=== PATIENT | male | born 1965 | race Caucasian/White ===

== ENCOUNTER 2019-07-29 21:26 | Emergency (ER) | payer SELFPAY ==
[2019-07-29] MEDS ORDERED: IV RINGERS SOLUTION,LACTATED 1,000 ML IV SCH (21:35)
--- NOTE | 2019-07-29 21:35 | PHYS DOC ---
Past History Past Medical History: Bronchitis Adult General Chief Complaint Chief Complaint: ".. Everyone in the [facility] is sick.. cough, congestion, colds... now I ve got the same thing.. for last week.. I ve been down ten years.. but I can't wait to get out of the [facility].. .. 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 Patient has not smoke for over 7 years. Is exposed to multiple other prisoners at the [facility] that are sick. Patient did not get a flu vaccination this season. No recent travel. States he is normally healthy. Review of Systems Review of Systems Constitutional: Subjective history of fever or chills [] Eyes: Denies change in visual acuity, redness, or eye pain [] HENT: history of nasal congestion or sore throat [] Respiratory: History of cough and wheezing Cardiovascular: No additional information not addressed in HPI [] GI: Denies abdominal pain, nausea, vomiting, bloody stools or diarrhea [] : Denies dysuria or hematuria [] Musculoskeletal: Denies back pain or joint pain [] Integument: Denies rash or skin lesions [] Neurologic: Denies headache, focal weakness or sensory changes [] Endocrine: Denies polyuria or polydipsia [] All other systems were reviewed and found to be within normal limits, except as documented in this note. Family History Family History Noncontributory Current Medications Current Medications See nursing for home meds Allergies Allergies No known drug allergies Physical Exam Physical Exam Constitutional: moderate distress, non-toxic appearance. [] HENT: Normocephalic, atraumatic, bilateral external ears normal, oropharynx moist, injection of pharynx, no oral exudates, nose: Turbinates and rhinorrhea. Dental caries Eyes: PERRLA, EOMI, conjunctiva normal, no discharge. [] Neck: Normal range of motion, no tenderness, supple, no stridor. [] Cardiovascular:Heart rate regular rhythm, no murmur [.Pt. did have episodes of PVC and PAC with coughing episodes. ] Lungs & Thorax: Bilateral breath sounds equal at apexes few scattered wheezes auscultation [] Abdomen: Bowel sounds normal, soft, no tenderness, no masses, no pulsatile masses. [] Skin: Warm, dry, no erythema, no rash. [] Back: No tenderness, no CVA tenderness. [] Extremities: No tenderness, no cyanosis, no clubbing, ROM intact, no edema. [] Neurologic: Alert and oriented X 3, normal motor function, normal sensory function, no focal deficits noted. [] Psychologic: Affect, anxious ,judgement normal, mood normal. [] EKG EKG My interpretation EKG shows a sinus rhythm at 78 bpm. There is some nonspecific anterior lateral changes. But no findings acute STEMI with contralateral changes[] Radiology/Procedures Radiology/Procedures [][address] [address] IMAGING REPORT Signed PATIENT: DANYA CELIS ACCOUNT: [id number] : 1965 LOCATION: ER AGE: 53 SEX: M EXAM STATUS: REG ER ORD. PHYSICIAN: JOCELYN LEMUS MD REASON: Dyspnea, congestion PROCEDURE: CHEST PA & LATERAL PA and lateral chest. HISTORY: Dyspnea, congestion PA and lateral views were taken of the chest. Lungs are clear. Heart is normal in size without heart failure. There is no effusion. IMPRESSION: 1. No acute chest disease. Electronically signed by: Fermin Marcus MD (07/29/2019 10:11 PM) [facility] DICTATED AND SIGNED BY: FERMIN MARCUS MD DATE: 07/29/19 2211 CC: JOCELYN LEMUS MD; PCP,GIL ~ Course & Med Decision Making Course & Med Decision Making Pertinent Labs and Imaging studies reviewed. (See chart for details) Take Benadryl 25-50 mg 4 times a day. Use MDI 2 puffs 4 times a day. Take prednisone 50 mg a day. Follow-up primary care. Return if any concerns. Tylenol and ibuprofen for discomfort. Impression- 1. Upper respiratory infection 2. Virals Syndrome 3. [id number] Hgb [] Dragon Disclaimer Dragon Disclaimer This electronic medical record was generated, in whole or in part, using a voice recognition dictation system. Departure Departure: Disposition: 01 HOME/RESIDENCE PRIOR TO ADM Condition: STABLE Referrals: PCPGIL (PCP) Scripts Prednisone (PREDNISONE) 50 Mg Tablet 50 MG PO DAILY for bronchitis for 5 Days, #5 TAB Prov: JOCELYN LEMUS MD 07/29/19 Marlena Disclaimer This chart was dictated in whole or in part using Voice Recognition software in a busy, high-work load, and often noisy Emergency Department environment. It may contain unintended and wholly unrecognized errors or omissions. Dragon Disclaimer This chart was dictated in whole or in part using Voice Recognition software in a busy, high-work load, and often noisy Emergency Department environment. It may contain unintended and wholly unrecognized errors or omissions. JOCELYN LEMUS MD Jul 29, 2019 21:35
[2019-07-29] MEDS ORDERED: methylPREDNISolone SOD SUCC PF 125 MG/2 ML VIAL. IV ONE (21:45)
[2019-07-29] MEDS ORDERED: ASPIRIN 81 MG TAB.CHEW PO ONE (22:00)
--- NOTE | 2019-07-29 22:14 | RAD ---
PA and lateral chest. HISTORY: Dyspnea, congestion PA and lateral views were taken of the chest. Lungs are clear. Heart is normal in size without heart failure. There is no effusion. IMPRESSION: 1. No acute chest disease. Electronically signed by: Fermin Mora MD (07/29/2019 10:11 PM) [facility]
[2019-07-29] MEDS ORDERED: IPRATRPIUM/ALBUTEROL 0.5/2.5MG 3 ML NEBU. NEB ONE (22:15)
[2019-07-29 22:16] LABS: BASO % 0 % (0-3); EOS # 0.1 x10^3/uL (0.0-0.7); EOS % 1 % (0-3); HEMATOCRIT 38.1 % (39.0-53.0); HEMOGLOBIN 12.7 g/dL (13.0-17.5); LYMPH # 1.9 x10^3/uL (1.0-4.8); LYMPH % 22 % (24-48); MEAN CORPUSCULAR HEMOGLOBIN 30 pg (25-35); MEAN CORPUSCULAR HGB CONC 33 g/dL (31-37); MEAN CORPUSCULAR VOLUME 90 fL (79-100); MONO # 0.8 x10^3/uL (0.0-1.1); MONO % 10 % (0-9); NEUT # 5.8 x10^3uL (1.8-7.7); NEUT % 67 % (31-73); PLATELET COUNT 223 x10^3/uL (140-400); RED BLOOD COUNT 4.21 x10^6/uL (4.30-5.70); RED CELL DISTRIBUTION WIDTH 13.5 % (11.5-14.5); WHITE BLOOD COUNT 8.7 x10^3/uL (4.0-11.0)
[2019-07-29 22:25] LABS: CALCIUM 8.4 mg/dL (8.5-10.1); CREATININE 0.8 mg/dL (0.7-1.3); GFR 101.9; POTASSIUM 3.7 mmol/L (3.5-5.1)
[2019-07-29 22:30] LABS: INFLUENZA A PATIENT NEGATIVE (NEGATIVE); INFLUENZA B PATIENT NEGATIVE (NEGATIVE)
[2019-07-29 22:38] LABS: ALBUMIN 3.4 g/dL (3.4-5.0); DIRECT BILIRUBIN 0.1 mg/dL (0.0-0.2); MAGNESIUM 1.9 mg/dL (1.8-2.4); TOTAL BILIRUBIN 0.4 mg/dL (0.2-1.0)
[2019-07-29] MEDS ORDERED: ALBUTEROL SULFATE 8GM INHALER. INH ONE (22:45)
[2019-07-29] MEDS ORDERED: diphenhydrAMINE HCL 25 MG CAPSULE PO ONE (23:00)
[2019-07-29] MEDS ORDERED: PRED50TA PO (23:33)
[2019-07-29 23:44] VITALS: BP 135/49
[2019-07-29 23:47] LABS: BACTERIA,URINE FEW /HPF (0-FEW); BILIRUBIN,URINE NEG (NEG); CLARITY,URINE HAZY; COLOR,URINE YELLOW; GLUCOSE,URINE NEG (NEG); NITRITE,URINE NEG (NEG); RBC,URINE OCC /HPF (0-2); SQUAMOUS EPITHELIAL CELL,UR OCC /LPF; UROBILINOGEN,URINE 0.2 mg/dL (0.2 mg/dL)
[2019-07-29 23:53] LABS: BARBITURATES NEG (NEG); BENZODIAZEPINES NEG (NEG); CANNABINOIDS NEG (NEG); COCAINE NEG (NEG); METHADONE NEG (NEG); OPIATES NEG (NEG); PHENCYCLIDINE NEG (NEG)
[2019-07-29 23:54] LABS: AMPHETAMINE/METHAMPHETAMINE NEG (NEG)
--- NOTE | 2019-07-30 04:42 | EKG ---
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
--- NOTE | 2019-07-30 04:43 | EKG ---
[address] [address] Test Date: 2019-07-29 Test Time: 23:24:08 Pat Name: DANYA CELIS Department: Room: Gender: M [employer] Operator: : 1965 Requested By: JOCELYN LEMUS Order Number: [id number] Reading MD: Measurements Intervals [place] Rate: 93 P: 54 [place]: 166 QRS: 23 QRSD: 90 T: 39 QT: 370 QTc: 463 Interpretive Statements SINUS RHYTHM VENTRICULAR PREMATURE COMPLEX(ES) ATRIAL PREMATURE COMPLEX(ES) ABNORMAL ECG RI6.01 No previous ECG available for comparison
== END 2019-07-29 23:57 | disposition home or self-care (01) ==
LOC: ER 21:26
DX: D64.9 Anemia, unspecified (principal); J06.9 Acute upper respiratory infection, unspecified; B34.9 Viral infection, unspecified
CPT/HCPCS: 36415; 71046; 80048; 80076; 80307; 81001; 82550; 83690; 83735; 83880; 84443; 84484; 85025; 85379; 85610; 85730; 87070; 87086; 87804; 87880; 93005; 94640; 96374; 99285; J2930; J7120; J7613; J7620; Q0163; 96361; 94664